=== PATIENT | male | born 1965 ===

== ENCOUNTER 2017-10-20 20:54 | Emergency (ER) | payer OTHER ==
[~2017-10-20] VITALS: Ht 177.8 cm; Wt 114.9 kg
[2017-10-20 21:07] VITALS: TEMP 37.1; Ht 177.8 cm; Wt 114.9 kg
[2017-10-20] MEDS ORDERED: AMPICILLIN/SULBACTAM SOD INJ 3,000 MG in SODIUM CHLORIDE 0.9% 100ML 100 ML IV STA (22:17)
[2017-10-20] MEDS ORDERED: FENTANYL CITRATE INJ 50 MCG/1 ML 2 ML VIAL IV STA (22:17)
[2017-10-20] MEDS ORDERED: ACETAMINOPHEN IV 100 ML IV STA (22:17)
[2017-10-20] MEDS ORDERED: SODIUM CHLORIDE 0.9% 500ML 500 ML IV STA (22:17)
[2017-10-20 22:43] LABS: BASO % 0.3 %; BASO ABS # 0.03 K/uL (0-0.2); EOS % 3.3 %; EOS ABS # 0.38 K/uL (0-0.5); HEMATOCRIT 48.1 % (42-52); HEMOGLOBIN 16.5 g/dL (14.0-18.0); IG# 0.03 K/uL (0.00-0.02); LYMPH % 23.3 %; LYMPH ABS # 2.65 K/uL (1.2-3.4); MEAN CELL VOLUME 90.6 fL (80-100); MEAN CORPUSCULAR HEMOGLOBIN 31.1 pg (25-34); MEAN CORPUSCULAR HGB CONC 34.3 g/dl (32-36); MEAN PLATELET VOLUME 9.9 fL (7.4-10.4); MONO % 7.1 %; MONO ABS # 0.81 K/uL (0.11-0.59); NEUT % 65.7 %; NEUT ABS # 7.47 K/uL (1.4-6.5); PLATELET COUNT 358 K/uL (130-400); RED CELL DISTRIBUTION WIDTH CV 14.2 % (11.5-14.5); RED CELL DISTRIBUTION WIDTH SD 47.2 fL (36.4-46.3); WHITE BLOOD COUNT 11.37 K/uL (4.8-10.8)
[2017-10-20] MEDS ORDERED: OPTIRAY 320 IV PRN (22:45)
[2017-10-20 23:02] LABS: ALBUMIN 4.2 gm/dl (3.4-5.0); CALCIUM 9.6 mg/dl (8.5-10.1); CREATININE 1.22 mg/dl (0.60-1.40); POTASSIUM 3.9 mmol/L (3.5-5.1)
[2017-10-20 23:05] LABS: TOTAL PROTEIN 8.9 gm/dl (6.4-8.2)
--- NOTE | 2017-10-20 23:28 | EMERGENCY ROOM VISIT NOTE ---
ED Visit Note First contact with patient: 21:56 CHIEF COMPLAINT: Dental pain, facial pain and swelling HISTORY OF PRESENTING ILLNESS: This is a 52-year-old male with past medical history of insulin-dependent diabetes, hypertension, who presented to the emergency department with complaint of right lower dental pain and facial pain/ swelling for the past week. He states the pain has been getting significantly worse over the past 2 days. He reports the pain is constant, aching and throbbing, worse with eating and chewing, nothing makes it better, 9/10. He has been having some associated chills, but denies fevers, difficulty swallowing , difficulty breathing, chest pain, neck pain or stiffness, tongue or lip swelling. He has been taking aspirin, ibuprofen for pain. He has been applying ice with no improvement. He states that he has bad teeth throughout his mouth and has been talking with the dentist about getting his teeth pulled to get dentures. 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 He denies any previous history of cellulitis. REVIEW OF SYSTEMS: A complete 10 point review of systems was reviewed with the patient with pertinent positives and negatives as per history of present illness. All else were negative. PAST MEDICAL HISTORY: Hypertension, insulin-dependent diabetes SOCIAL HISTORY: Lives at home with family. Denies tobacco, alcohol, recreational drug use. ALLERGIES: Prochlorperazine. PHYSICAL EXAM: CONSTITUTIONAL: Pleasant and cooperative. No acute distress. Moderately dehydrated. HEENT: Normocephalic, atraumatic. PERRL, EOMI. TMs normal. Pharynx normal. Dry mucous membranes. Poor dentition throughout. Broken and carious teeth in the right lower jaw with surrounding gingival erythema and tenderness. No palpable fluctuance distant with abscess. Tenderness and induration of the right lower jawline extending to the TMJ as well as tenderness and cervical adenopathy on the right. Airway patent. No tongue or pharyngeal swelling noted. NECK: Supple, full active range of motion without discomfort. RESPIRATORY: Clear to auscultation bilaterally with no wheezing, crackles, rhonchi or stridor. Equal expansion bilaterally. CARDIOVASCULAR: Regular rate and rhythm with no murmurs, rubs or gallops. Normal peripheral perfusion. No edema. GASTROINTESTINAL: Soft, nontender, nondistended. No palpable masses or HSM. Bowel sounds present in all quadrants. MUSCULOSKELETAL: Full range of motion of all joints without discomfort. INTEGUMENTARY: No rash or other significant dermatologic conditions noted. NEUROLOGIC: Alert and oriented X 4 with normal affect. Cranial nerves II-XII grossly intact. No focal neurologic deficits noted. Normal strength and sensation in all 4 extremities. Normal speech. Normal gait observed. ED COURSE AND MEDICAL DECISION MAKING: CC: Patient presenting with complaint of right dental pain, facial pain and swelling DIFFERENTIAL DIAGNOSIS: Includes, but not limited to dental abscess, gingivitis , cellulitis, deep space abscess, parotitis, osteomyelitis, among others. INTERPRETATION OF LABS: Leukocytosis with left shift, no anemia, no significant electrolyte abnormalities, normal renal function, normal liver enzymes. IMAGING: Statrad read as follows: Dental caries. Periapical lucencies involving multiple teeth. Right perimandibular soft tissue swelling/induration with ill- defined areas of low attenuation (image [id number]), possible phlegmonous material or early abscess formation. Evaluation is limited by dental artifact. Prominent right submandibular lymph nodes. EKG: Shows normal sinus rhythm with a rate of 86 bpm, left axis deviation, no acute ischemic changes noted by my interpretation. No previous EKGs available for comparison. MEDICATION RECONCILIATION: I attest that I have personally reviewed the patient 's current medication list. INITIAL VITAL SIGNS REVIEW: I reviewed the patient's initial vital signs and interpret them as follows: T: Afebrile; BP: Markedly hypertensive; HR: Within normal limits; RR: Within normal limits; Pulse Ox: Within normal limits on room air. Blood pressure screening: The patient was found to have an elevated blood pressure and was referred to their primary doctor for recheck and further treatment. SUMMARY: Patient was evaluated at bedside, history and physical exam performed. Patient is alert and oriented, no acute distress but does appear to be in significant pain, resting calmly in stretcher. There is right facial swelling, induration, and tenderness to palpation along the jawline extending back to the TMJ. Poor dentition throughout. There are 2 broken molars on the right lower side, carious, with surrounding gingivitis, but no palpable fluctuance consistent with a periapical abscess. Patent airway, no oral pharyngeal swelling. Right cervical adenopathy with tenderness to palpation. Orders were placed at bedside for labs, UA, IV fluids for hydration, IV fentanyl and Tylenol for pain, CT face with IV contrast to evaluate for dental abscess, deep space abscess/cellulitis, osteomyelitis. Patient discussed with Dr. Price, who agrees with my assessment and plan. Labs and imaging reviewed as above, mild leukocytosis with left shift. CT concerning for right facial cellulitis and early abscess formation. Given the concern for abscess development and potential for worsening infection , patient is an insulin-dependent diabetic, and [place] out of state, I feel the patient would benefit from hospital admission for continued IV antibiotics and monitoring for worsening of condition. I spoke with Dr. Tran, hospitalist, who evaluated the patient and states he does not believe the patient warrants admission, and states the patient indeed wishes to be discharged. Patient reassessed multiple times throughout ED stay, he remains well-appearing , with no airway compromise, and afebrile. His blood pressure, though still quite elevated, is improving after pain meds, and patient states he will take his own blood pressure medications after discharge. Patient did state that he would prefer to be discharged if possible. I had a lengthy conversation with him regarding treatment for his infection, the need for close follow-up with his primary care provider and dentist, and strict return precautions should his symptoms worsen. The patient verbalized understanding and agreement with plan. Patient was provided with take-home packs and written prescriptions for Augmentin and oxycodone. The patient was also given a dose of IV Toradol for additional pain relief per her request of Dr. Tran prior to discharge. Patient was discharged home in stable condition and ambulatory. Current/Historical Medications Scheduled Amoxicillin & Pot Clavulanate (Augmentin 875-125 mg), 1 TAB PO BID Scheduled PRN Oxycodone Ir (Roxicodone Ir), 1-2 TAB PO Q6H PRN for Severe Pain Allergies Coded Allergies: Prochlorperazine (Verified Allergy, Intermediate, Anxiety, 10/20/17) Vital Signs Date Time Temp Pulse Resp B/P (MAP) Pulse Ox O2 Delivery O2 Flow Rate FiO2 10/21/17 00:23 92 18 191/101 94 Room Air 10/20/17 23:04 86 16 179/116 95 Room Air 10/20/17 22:54 84 10/20/17 22:39 96 20 186/120 99 Room Air 10/20/17 22:39 Room Air 10/20/17 21:07 37.1 83 20 224/111 95 Room Air Laboratory Results 10/20/17 22:30 Red Blood Count 5.31, Mean Corpuscular Volume 90.6, Mean Corpuscular Hemoglobin 31.1, Mean Corpuscular Hemoglobin Concent 34.3, Mean Platelet Volume 9.9, Neutrophils (%) (Auto) 65.7, Lymphocytes (%) (Auto) 23.3, Monocytes (%) (Auto) 7.1, Eosinophils (%) (Auto) 3.3, Basophils (%) (Auto) 0.3, Neutrophils # (Auto) 7.47, Lymphocytes # (Auto) 2.65, Monocytes # (Auto) 0.81, Eosinophils # (Auto) 0.38, Basophils # (Auto) 0.03 10/20/17 22:30 Test 10/20/17 22:30 White Blood Count 11.37 K/uL (4.8-10.8) Red Blood Count 5.31 M/uL (4.7-6.1) Hemoglobin 16.5 g/dL (14.0-18.0) Hematocrit 48.1 % (42-52) Mean Corpuscular Volume 90.6 fL (80-100) Mean Corpuscular Hemoglobin 31.1 pg (25-34) Mean Corpuscular Hemoglobin Concent 34.3 g/dl (32-36) Platelet Count 358 K/uL (130-400) Mean Platelet Volume 9.9 fL (7.4-10.4) Neutrophils (%) (Auto) 65.7 % Lymphocytes (%) (Auto) 23.3 % Monocytes (%) (Auto) 7.1 % Eosinophils (%) (Auto) 3.3 % Basophils (%) (Auto) 0.3 % Neutrophils # (Auto) 7.47 K/uL (1.4-6.5) Lymphocytes # (Auto) 2.65 K/uL (1.2-3.4) Monocytes # (Auto) 0.81 K/uL (0.11-0.59) Eosinophils # (Auto) 0.38 K/uL (0-0.5) Basophils # (Auto) 0.03 K/uL (0-0.2) RDW Standard Deviation 47.2 fL (36.4-46.3) RDW Coefficient of Variation 14.2 % (11.5-14.5) Immature Granulocyte % (Auto) 0.3 % Immature Granulocyte # (Auto) 0.03 K/uL (0.00-0.02) Anion Gap 8.0 mmol/L (3-11) Est Creatinine Clear Calc Drug Dose 90.9 ml/min Estimated GFR () 79.1 Estimated GFR (Non- 68.2 BUN/Creatinine Ratio 9.3 (10-20) Calcium Level 9.6 mg/dl (8.5-10.1) Total Bilirubin 0.4 mg/dl (0.2-1) Direct Bilirubin 0.1 mg/dl (0-0.2) Aspartate Amino Transf (AST/SGOT) 31 U/L (15-37) Alanine Aminotransferase (ALT/SGPT) 69 U/L (12-78) Alkaline Phosphatase 67 U/L (45-117) Total Protein 8.9 gm/dl (6.4-8.2) Albumin 4.2 gm/dl (3.4-5.0) Medications Administered Medications (Trade) Dose Ordered Sig/Cherie Route Start Time Stop Time Status Last Admin Dose Admin Ampicillin Sodium/ Sulbactam Sodium 3000 mg/Sodium Chloride 108 ml @ 200 mls/hr NOW STAT IV 10/20/17 22:17 10/20/17 22:49 DC 10/20/17 23:03 200 MLS/HR Fentanyl Citrate (Fentanyl Inj) 50 mcg NOW STAT IV 10/20/17 22:17 10/20/17 22:23 DC 10/20/17 22:45 50 MCG Acetaminophen 100 ml @ 400 mls/hr NOW STAT IV 10/20/17 22:17 10/20/17 22:31 DC 10/20/17 22:45 400 MLS/HR Sodium Chloride 500 ml @ 999 mls/hr Q31M STAT IV 10/20/17 22:17 10/20/17 22:47 DC 10/20/17 22:44 999 MLS/HR Hydromorphone HCl (Dilaudid Inj) 0.5 mg NOW STAT IV 10/21/17 00:14 10/21/17 00:15 DC 10/21/17 00:23 0.5 MG Ketorolac Tromethamine (Toradol Inj) 15 mg NOW STAT IV 10/21/17 00:57 10/21/17 00:59 DC 10/21/17 01:15 15 MG Oxycodone HCl (Roxicodone Immediate Rel 5MG Home Pack) 1 homepack UD ONCE PO 10/21/17 01:15 10/21/17 01:16 DC 10/21/17 01:15 1 HOMEPACK Amoxicillin/ Clavulanate Potassium (Augmentin 875MG Home Pack) 1 homepack UD ONCE PO 10/21/17 01:15 10/21/17 01:16 DC 10/21/17 01:15 1 HOMEPACK Departure Information Impression Primary Impression: Cellulitis and abscess of face Dispostion Home / Self-Care Condition GOOD Prescriptions Oxycodone Ir (Roxicodone Ir) 5 Mg Tab 1-2 TAB PO Q6H Y for Severe Pain, #20 TAB Prov: Windy Savage CRNP 10/21/17 Amoxicillin & Pot Clavulanate (Augmentin 875-125 mg) 1 Tab Tab 1 TAB PO BID for 10 Days, #20 TAB Prov: Windy Savage CRNP 10/21/17 Referrals No Doctor, Assigned (PCP) Patient Instructions ED Dental Abscess Facial Cellulitis, [facility] Additional Instructions You were seen in the Emergency Department for cellulitis and abscess of your face. You have been prescribed Augmentin to be taken 2 times a day for 10 days. This medication is an antibiotic. Stop this medication and contact a medical provider if you were to develop any significant adverse side effects including: wheezing, shortness of breath, passing out, vomiting, or a diffuse rash. Always take antibiotics as directed and COMPLETE the ENTIRE course regardless of the improvement of your symptoms. You have been prescribed Oxycodone 5mg to take 1-2 tablets every 6 hours as needed for severe pain. This is a narcotic. Do not drive, operate machinery, or drink alcohol while you are taking this medication. This medicine should only be used for pain that cannot be controlled with [id number] pain medicines. Look for signs of worsening infection of the wound including: increased pain, redness, swelling, foul discharge in the mouth, persistent vomiting and unable to keep down fluids, or fevers/chills/feeling ill. If any of these are noticed you should return immediately to the Emergency Department for further assessment and treatment. For additional pain control, you can use the following [id number] medicines (if >12 yo): - Extra strength (500mg/tab) Tylenol (acetaminophen) 1-2 tabs every 6-8 hours as needed. Do not exceed 6 tablets in a 24 hour period. Avoid taking more than 3 grams (3000 mg) of Tylenol per day. This includes any other sources of acetaminophen you may take on a regular basis. - Regular strength (200 mg/tab) Advil (ibuprofen) 1-2 tabs every 4-6 hours as needed. Do not exceed a dose of 2400 mg per day. Apply warm compresses to the right side of the face to help with pain and also to help improve the infection. Refrain from smoking cigarettes or using chewing tobacco until you have been evaluated by your dentist. Keeping beverages lukewarm and consuming soft foods can decrease your pain. Warm compresses over the affected area may offer some relief. You MUST seek evaluation of your dental pain by a dentist following your visit to the Emergency Department. The Emergency Department is not capable of treating dental issues long-term. You should call your dentist as soon as possible to make an appointment for evaluation of your dental pain. Follow up with your PCP and dentist in the next few days for recheck, or sooner for worsening symptoms. Return to the emergency department if your symptoms worsen despite treatment course outlined above.
[2017-10-21] MEDS ORDERED: HYDROmorphone INJ 0.5 MG/0.5 ML SYR IV STA (00:14)
[2017-10-21 00:23] VITALS: BP 191/101; PULSE 92; O2SAT 94
[2017-10-21] MEDS ORDERED: KETOROLAC TROMETHAMINE 30 MG/ML VIAL IV STA (00:57)
[2017-10-21] MEDS ORDERED: AMOX875T PO (01:04)
[2017-10-21] MEDS ORDERED: OXYC1TAB3 PO (01:04)
--- NOTE | 2017-10-21 01:09 | Medical Consult ---
Consultation Date of Consultation: Oct 21, 2017. Attending Physician: Reason for Consultation: Dental abscess History of Present Illness 52 y/o M Hx DM, HTN. Presents with R sided jaw and dental pain. The pt is on route from [place] to [place] and stopped into the hospital as his pain was rather intense. He denies fevers or rigors. Denies dysphagia. A CT of the face revealed perimandibular soft tissue swelling which may represent early abscess formation. Past Medical/Surgical History 1) HTN 2) DM II 3) Smoker Family History Noncontributory to current case Social History Smoking Status: Current Every Day Smoker Allergies Coded Allergies: Prochlorperazine (Verified Allergy, Intermediate, Anxiety, 10/20/17) Current Inpatient Medications Current Inpatient Medications Medications (Trade) Dose Ordered Sig/Cherie Route Start Time Stop Time Status Last Admin Dose Admin Ioversol (Optiray 320) 100 ml UD PRN IV 10/20/17 22:45 10/24/17 22:44 Review of Systems Constitutional: No fever, No chills, No sweats Eyes: No worsening of vision ENT: + dental problems (JAw/dental pain as above), No hearing loss Respiratory: No cough, No sputum, No wheezing Cardiovascular: No chest pain, No orthopnea Abdomen: No pain, No nausea, No vomiting Musculoskeletal: No joint pain Genitourinary - Male: No hematuria, No dysuria Neurologic: No memory loss, No paralysis, No weakness Psychiatric: No depression symptoms Endocrine: No fatigue Hematologic / Lymphatic: No abnormal bleeding/bruising Integumentary: No rash Allergic / Immunologic: No environmental allergies Physical Exam Date Time Temp Pulse Resp B/P (MAP) Pulse Ox O2 Delivery O2 Flow Rate FiO2 10/21/17 00:23 92 18 191/101 94 Room Air 10/20/17 23:04 86 16 179/116 95 Room Air 10/20/17 22:54 84 10/20/17 22:39 96 20 186/120 99 Room Air 10/20/17 22:39 Room Air 10/20/17 21:07 37.1 83 20 224/111 95 Room Air General Appearance: WD/WN Head: normocephalic Eyes: normal inspection ENT: + pertinent finding (There are multiple dental carries - some inflammation is present surrounding his R lower rear molars) Neck: supple, no JVD Respiratory/Chest: chest non-tender, lungs clear, normal breath sounds Cardiovascular: regular rate, rhythm, no edema, no gallop Abdomen/GI: normal bowel sounds, non tender, soft Genitourinary - Male: normal male genitalia, normal phallus Back: normal inspection, no CVA tenderness Extremities/Musculoskelatal: normal inspection, no calf tenderness Neurologic/Psych: director social welfare II-XII nml as tested, no motor/sensory deficits, oriented x 3 Laboratory Results Last 24 Hours Test 10/20/17 22:30 White Blood Count 11.37 K/uL Red Blood Count 5.31 M/uL Hemoglobin 16.5 g/dL Hematocrit 48.1 % Mean Corpuscular Volume 90.6 fL Mean Corpuscular Hemoglobin 31.1 pg Mean Corpuscular Hemoglobin Concent 34.3 g/dl Platelet Count 358 K/uL Mean Platelet Volume 9.9 fL Neutrophils (%) (Auto) 65.7 % Lymphocytes (%) (Auto) 23.3 % Monocytes (%) (Auto) 7.1 % Eosinophils (%) (Auto) 3.3 % Basophils (%) (Auto) 0.3 % Neutrophils # (Auto) 7.47 K/uL Lymphocytes # (Auto) 2.65 K/uL Monocytes # (Auto) 0.81 K/uL Eosinophils # (Auto) 0.38 K/uL Basophils # (Auto) 0.03 K/uL RDW Standard Deviation 47.2 fL RDW Coefficient of Variation 14.2 % Immature Granulocyte % (Auto) 0.3 % Immature Granulocyte # (Auto) 0.03 K/uL Sodium Level 140 mmol/L Potassium Level 3.9 mmol/L Chloride Level 104 mmol/L Carbon Dioxide Level 28 mmol/L Anion Gap 8.0 mmol/L Blood Urea Nitrogen 11 mg/dl Creatinine 1.22 mg/dl Est Creatinine Clear Calc Drug Dose 90.9 ml/min Estimated GFR () 79.1 Estimated GFR (Non- 68.2 BUN/Creatinine Ratio 9.3 Random Glucose 126 mg/dl Calcium Level 9.6 mg/dl Total Bilirubin 0.4 mg/dl Direct Bilirubin 0.1 mg/dl Aspartate Amino Transf (AST/SGOT) 31 U/L Alanine Aminotransferase (ALT/SGPT) 69 U/L Alkaline Phosphatase 67 U/L Total Protein 8.9 gm/dl Albumin 4.2 gm/dl Assessment & Plan 52 y/o M Hx DM, HTN. Presents with R sided jaw and dental pain. The pt is on route from [place] to [place] and stopped into the hospital as his pain was rather intense. He denies fevers or rigors. Denies dysphagia. A CT of the face revealed perimandibular soft tissue swelling which may represent early abscess formation. 1) Dental abscess - the pt received antibiotics and narcotics in the ER. We recommend DC with Augmentin or possibly Clinda for at least 10 days. He should be given an antiinflammatory such as IV Ketorolac prior to DC. He has been advised to return to the hospital if he develops fevers, dysphagia, or cannot control his pain. 2) DM - cont insulin as prescribed 3) HTN - no change to current meds will be made 4) Smoker - should be advised to stop as this will not help his abscess heal. Total time for this consult including review of labs, meds, imaging - discussion with pt and ER attending - 30 min
[2017-10-21] MEDS ORDERED: AMOXICIL/CLAVU 875MG HOME PACK PO ONE (01:15)
[2017-10-21] MEDS ORDERED: OXYCODONE IR HOME PACK PO ONE (01:15)
--- NOTE | 2017-10-21 08:06 | EMERGENCY ROOM VISIT NOTE ---
ED Visit Note Patient is a 52-year-old male who was seen last night for general pain. He was evaluated by Windy Morley and a CT was performed which showed a possible abscess. She consulted internal medicine for admission. Admission was declined to patient was discharged on Augmentin by Dr. Cevallos. Received a phone call at 7:50 AM by radiology. They note they reviewed the imaging and appears as though he has osteomyelitis in combination with an abscess. I discussed findings with Dr. Palencia from oral maxillary facial. He reviewed the images via CT. He believes that this patient can be seen in the office and he does have availability today. He notes he will have his secretaries contact the patient and get him in to have several teeth extracted. I had my charge nurse Jocelin contact the patient to inform him that he needs to be seen today by [facility] to prevent the infection from getting any worse. If anything changes or is unable to get and he should return to the ER for IV antibiotics and admission.
--- NOTE | 2017-10-21 11:32 | DIAGNOSTIC IMAGING REPORT ---
MAXILLOFACIAL CT WITH CONTRAST CLINICAL HISTORY: Right jaw pain and swelling. COMPARISON STUDY: No previous studies for comparison. TECHNIQUE: Maxillofacial CT was performed following intravenous injection of 94 cc Optiray 320 IV. Sagittal and coronal reconstructions were viewed. FINDINGS: Visualized portions of the intracranial contents are unremarkable. The orbits are unremarkable. Mastoid air cells are clear. Note is made of multiple dental caries and periapical abscesses/lucencies. Of note, there is extensive bony erosion involving a right maxillary molar, either the second or third molar. This suggests osteomyelitis. There is an adjacent 1.6 x 0.7 cm gas and fluid containing collection which suggests a small abscess. No additional abscesses are present. There is infiltration anterior to the right hemimandible consistent with cellulitis. Mildly enlarged right-sided cervical lymph nodes are likely reactive. The visualized portions of the airway are patent. A 1.6 cm cystic lesion within the superficial to the right parotid gland is noted. Left parotid gland is unremarkable. Submandibular glands are unremarkable. IMPRESSION: 1. Numerous dental caries and periapical lucencies. Extensive bony erosion involving a right maxillary molar, either the second or third molar which suggests osteomyelitis. A neoplastic process could appear similar although is considered much less likely. Small 1.6 x 0.7 cm fluid collection favors an adjacent abscess. Associated cellulitis. Findings discussed with Dr. Montoya at time of dictation. 2. 1.6 cm cystic right parotid gland lesion which favors a Warthin's tumor however is indeterminate. Ultrasound-guided fine needle aspiration could be performed. Electronically signed by: Matthew Mckeon M.D. 10/21/2017 11:30 AM Dictated Date/Time: 10/21/2017 7:37 AM
== END 2017-10-21 01:29 | disposition home or self-care (01) ==
LOC: C.EDB 20:56 → C.EDC 10-21 01:29
DX: K04.7 Periapical abscess without sinus (principal); L03.211 Cellulitis of face; L02.01 Cutaneous abscess of face; I10 Essential (primary) hypertension; E11.9 Type 2 diabetes mellitus without complications; F17.200 Nicotine dependence, unspecified, uncomplicated; Z88.8 Allergy status to other drugs, medicaments and biological substances; Z79.4 Long term (current) use of insulin; Z79.82 Long term (current) use of aspirin